=== PATIENT | female | born 1950 | race Caucasian/White ===

== ENCOUNTER 2017-10-14 15:16 | Emergency (ER) | payer MEDICARE, OTHER, SELFPAY ==
[2017-10-14 15:16] VITALS: BP 207/109; PULSE 125; RESP 18; TEMP 37.2; O2SAT 99; BMI 36.0
--- NOTE | 2017-10-14 15:27 | ED.VISSUMM ---
- ER Visit Summary Date of Service: 10/14/17 Chief Complaint: Right elbow and left knee pain status post mechanical fall History of Present Illness: The patient is a 66 F who had a mechanical fall injuring her right elbow and left knee. Immunizations unknown. She is on no anticoagulant and presently on no meds. She states she is anxious. She denies head trauma, loss of conscious, neck pain or paresthesia, anesthesia motor weakness. She denies any cardiorespiratory symptoms. She denies nausea or vomiting. She localizes pain to the right elbow and left knee. Physical Examination: Vital signs are marked for an elevated blood pressure and elevated heart rate. She does appear anxious. HEENT is grossly unremarkable no evidence of trauma. Heart is regular. Lungs are clear without any abnormal sounds. Axillary, median, radial and ulnar function intact. Radial pulse palpable. There is no pain the patient of the proximal humerus, medial lateral epicondyle or olecranon process. There is preservation of the radial head with supination pronation. There is no pain the patient of the distal radius or ulna. There is no invasion of the carpal bones and metacarpal bones or phalanges. Examination left knee reveals an abrasion. There is discoloration as well. The patella is not ballotable and there is no effusion. There is no laxity with varus or valgus stress testing. She has no joint line tenderness. No laxity with Carlos's test. Modified Kelly's test is negative. DP PT pulses are palpable. GCS is 15. Test Results: Three-view x-ray of the elbow was obtained. There is a radial head fracture at the radial neck with impaction. There appears to be a fracture of the coronoid process as well. Uncertain whether this is old or new. Emergency Department Course and Treatment: Patient declined pain medicine. Tetanus was updated and x-ray of the right elbow was obtained to evaluate for radial head fracture. Since there is no point tenderness of the left knee and no effusion full active range of motion x-ray was not obtained. Treatment Plan: Roseanna and referral to Dr. Morgan Disposition: Discharged to home with opiate analgesia and orthopedic follow-up Impression: Right radial head fracture and coronoid process fracture initial encounter secondary to fall This note was generated with Canvasation software. It may contain incorrect words, spelling, and punctuation that were not noted in review of the chart prior to signing ED Disposition - Plan for ED Patient: Disposition: Home or Assisted Living Chief Complaint: Upper Extremity Injury Instructions: ED Fx Radial Head Prescriptions: Oxycodone HCl/Acetaminophen [Percocet 5/325] 1 tab PO Q6H PRN PRN 5 Days #20 tab PRN Reason: Pain Referrals: Fareed Alicea [Primary Care Provider] - Cesar Morgan DO [STAFF PHYSICIAN] - 5-7 Days
[2017-10-14] MEDS: Diphth,Pertuss(Acell),Tet Vac 0.5 ML Vial IM (16:42)
[2017-10-14 17:33] VITALS: PULSE 112; RESP 16; O2SAT 98
== END 2017-10-14 17:35 | disposition home or self-care (01) ==
PROVIDERS: Emergency Provider Emergency Medicine; PCP Family Medicine
DX: S52.121A Displaced fracture of head of right radius, initial encounter for closed fracture (principal); S52.041A Displaced fracture of coronoid process of right ulna, initial encounter for closed fracture; S80.02XA Contusion of left knee, initial encounter; S80.212A Abrasion, left knee, initial encounter; W18.30XA Fall on same level, unspecified, initial encounter; Y93.9 Activity, unspecified; Y92.9 Unspecified place or not applicable; E66.9 Obesity, unspecified; Z68.36 Body mass index [BMI] 36.0-36.9, adult
CPT/HCPCS: 73080; 90715; 99283; A4216

== ENCOUNTER → 2019-01-08 09:44 | Outpatient (CLI) | payer MEDICARE, OTHER, SELFPAY ==
[2019-01-08 12:46] LABS: Anion Gap 9 (5-15); BUN 13 mg/dL (7-18); BUN/Creat Ratio 15.1 RATIO (10-20); Calcium,Total 9.4 mg/dL (8.5-10.1); Chloride 106 mmol/L (98-107); Creatinine, Serum 0.86 mg/dL (0.55-1.02); EST Glomerular Filtration Rate 70 mL/min (>60); Est Glom Filt Rate - Afr Amer 85 mL/min (>60); Glucose 94 mg/dL (74-106); Potassium 3.7 mmol/L (3.5-5.1); Sodium Level 141 mmol/L (136-145)
[2019-01-08 12:47] LABS: Absolute Lymphocyte Count 1.34 X10^3/uL (0.83-4.51); Absolute Neutrophil Count 6.4 X10^3/uL (2.0-7.7); Basophil# 0.05 X10^3/uL; Basophil% 0.6 % (0-1); Eosinophil# 0.03 X10^3/uL; Eosinophils% 0.4 % (0-5); Hematocrit 47.4 % (37-47); Hemoglobin 15.1 g/dL (12.0-15.0); Lymphocyte # 1.34 X10^3/ul (4.0); Lymphocyte % 16.2 % (19-41); Mean Corp Hgb Conc 31.9 g/dL (32-36); Mean Corpuscular Hgb 30.9 pg (27.0-32.0); Mean Corpuscular Volume 97.1 fL (81-99); Mean Platelet Vol. 11.8 fl (6.2-12.0); Monocyte# 0.39 X10^3/uL; Monocyte% 4.7 % (0-10); NRBC Flagged by Analyzer 0 % (0-5); Neutrophil # 6.44 X10^3/uL (2.7-7.7); Neutrophil % 77.9 % (47-70); Platelet Count 224 K/mm3 (150-450); RBC Distribution Width CV 12.6 % (11.6-14.6); RBC Distribution Width SD 45.1 fl (35.1-43.9); Red Blood Count 4.88 M/mm3 (4.2-5.4); White Blood Count 8.3 K/mm3 (4.4-11.0)
== END ==
PROVIDERS: PCP Family Medicine; Visit Provider Family Medicine
DX: R42 Dizziness and giddiness (principal)
CPT/HCPCS: 36415; 80048; 85025

== ENCOUNTER → 2019-03-14 08:30 | Outpatient (CLI) | payer MEDICARE, OTHER, SELFPAY ==
[2019-03-14 10:26] LABS: Cholesterol 191 mg/dL (200); High Density Lipoprotein 42 mg/dL; Triglycerides 121 mg/dL; Very Low Density Lipoprotein 24 mg/dL (5-40)
== END ==
PROVIDERS: PCP Family Medicine; Referring Provider Family Medicine; Visit Provider Family Medicine
DX: I10 Essential (primary) hypertension (principal)
CPT/HCPCS: 36415; 80061

== ENCOUNTER → 2019-09-03 08:34 | Outpatient (CLI) | payer MEDICARE, OTHER, SELFPAY ==
[2019-09-03 11:00] LABS: Anion Gap 3 (5-15); BUN 13 mg/dL (7-18); Chloride 109 mmol/L (98-107); Cholesterol 211 mg/dL (200); Creatinine, Serum 0.82 mg/dL (0.55-1.02); EST Glomerular Filtration Rate 74 mL/min (>60); Est Glom Filt Rate - Afr Amer 90 mL/min (>60); Glucose 99 mg/dL (74-106); High Density Lipoprotein 43 mg/dL; Potassium 3.9 mmol/L (3.5-5.1); Sodium Level 140 mmol/L (136-145); Triglycerides 115 mg/dL; Very Low Density Lipoprotein 23 mg/dL (5-40)
== END ==
PROVIDERS: PCP Family Medicine; Referring Provider Family Medicine; Visit Provider Family Medicine
DX: I10 Essential (primary) hypertension (principal)
CPT/HCPCS: 36415; 80048; 80061

== ENCOUNTER → 2020-01-29 14:20 | Outpatient (CLI) | payer MEDICARE, OTHER, SELFPAY | PROVIDERS: PCP Family Medicine; Visit Provider Family Medicine | DX: J02.9 Acute pharyngitis, unspecified (principal) | CPT/HCPCS: 87635; U0003 ==

== ENCOUNTER → 2020-02-27 08:15 | Outpatient (CLI) | payer MEDICARE, OTHER, SELFPAY ==
[2020-02-27 10:41] LABS: Anion Gap 6 (5-15); BUN 10 mg/dL (7-18); Calcium,Total 9.3 mg/dL (8.5-10.1); Chloride 106 mmol/L (98-107); Cholesterol 183 mg/dL (200); Creatinine, Serum 0.84 mg/dL (0.55-1.02); EST Glomerular Filtration Rate 72 mL/min (>60); Est Glom Filt Rate - Afr Amer 87 mL/min (>60); Glucose 92 mg/dL (74-106); High Density Lipoprotein 42 mg/dL; Potassium 3.5 mmol/L (3.5-5.1); Sodium Level 140 mmol/L (136-145); Triglycerides 126 mg/dL; Very Low Density Lipoprotein 25 mg/dL (5-40)
== END ==
PROVIDERS: PCP Family Medicine; Referring Provider Family Medicine; Visit Provider Family Medicine
DX: I10 Essential (primary) hypertension (principal)
CPT/HCPCS: 36415; 80048; 80061

== ENCOUNTER → 2021-08-31 | Outpatient (CLI) | payer MEDICARE, OTHER, SELFPAY ==
[2021-08-31 10:35] LABS: Anion Gap 6 (5-15); BUN 10 mg/dL (7-18); Calcium,Total 9.3 mg/dL (8.5-10.1); Chloride 105 mmol/L (98-107); Cholesterol 208 mg/dL (200); Creatinine, Serum 0.71 mg/dL (0.55-1.02); EST Glomerular Filtration Rate 86 mL/min (>60); Est Glom Filt Rate - Afr Amer 104 mL/min (>60); Glucose 93 mg/dL (74-106); High Density Lipoprotein 49 mg/dL; Potassium 3.8 mmol/L (3.5-5.1); Sodium Level 143 mmol/L (136-145); Triglycerides 121 mg/dL; Very Low Density Lipoprotein 24 mg/dL (5-40)
== END | disposition home or self-care (01) ==
LOC: MFPLAB 09:24
PROVIDERS: PCP Family Medicine; Visit Provider Family Medicine
DX: Z00.00 Encounter for general adult medical examination without abnormal findings (principal)
CPT/HCPCS: 36415; 80048; 80061

== ENCOUNTER → 2022-09-02 | Outpatient (CLI) | payer MEDICARE, OTHER, SELFPAY ==
--- NOTE | 2022-09-02 09:04 | RAD_ITS ---
INDICATION: PAIN EXAMINATION/TECHNIQUE: X-RAY - BILATERAL XR Hips Bilateral with Pelvis when performed; 2 Views : AP view pelvis with AP and lateral views bilateral hips COMPARISON: None. FINDINGS: PELVIC BONES: No displaced fracture or suspicious osseous lesion demonstrated. Note that overlapping bowel shadows may however obscure fine detail. Sacroiliac joints are unremarkable. No widening of the pubic symphysis. Degenerative changes along imaged lumbar spine. HIPS: Mild right hip degenerative joint space narrowing and mild acetabular osteophytic lipping. No significant joint space narrowing left hip. No hip fracture, dislocation or suspicious osseous lesion. SOFT TISSUES: Slightly prominent colonic fecal load. RAD/Hips B/L min 2 views w/ Pelvis IMPRESSION: 1. Mild right hip osteoarthrosis 2. Probable mild constipation 3. Lumbar spondylosis Electronically Signed: Stan Hong MD at 1:00 EDT ,
[2022-09-02 11:29] LABS: Anion Gap 9 (5-15); BUN 12 mg/dL (7-18); BUN/Creat Ratio 16.8 RATIO (10-20); Calcium,Total 9.6 mg/dL (8.5-10.1); Chloride 107 mmol/L (98-107); Cholesterol 156 mg/dL (200); Creatinine, Serum 0.72 mg/dL (0.55-1.02); EST Glomerular Filtration Rate 86 mL/min (>60); Est Glom Filt Rate - Afr Amer 103 mL/min (>60); Glucose 95 mg/dL (74-106); High Density Lipoprotein 48 mg/dL; Potassium 3.9 mmol/L (3.5-5.1); Sodium Level 141 mmol/L (136-145); Triglycerides 98 mg/dL; Very Low Density Lipoprotein 20 mg/dL (5-40)
== END | disposition home or self-care (01) ==
LOC: MTLAB 09:02
PROVIDERS: PCP Family Medicine; Visit Provider Family Medicine
DX: Z00.00 Encounter for general adult medical examination without abnormal findings (principal); Z79.899 Other long term (current) drug therapy
CPT/HCPCS: 36415; 73521; 80048; 80061

== ENCOUNTER 2023-01-14 08:30 | Outpatient (RCR) | payer MEDICARE, OTHER, SELFPAY ==
--- NOTE | 2022-10-19 10:00 | HP.PTEVAL ---
Patient's Visit Information Visit Information Visit Information: [facility] ASPEN APPIAH is a 71 year old F referred to Physical Therapy by Dr. Fareed Alicea MD with a diagnosis of HIP PAIN. Date of Evaluation: 10/19/22 Physical Therapist: Craig Kiser PT, Cert MDT, OCS Visit Plan Frequency: 2x /Week Duration: 4 Weeks Plan: PT INTERVENTIONS ROM/STRENGTH HIP ,DLS ,FLEXABLITY ,POSTURAL EX'S AND MODALTIES Subjective Subjective: This 71 y/o female presents to physical therapy with right hip. Patient has right hip pain for ~ 3 years which has progressively worsen . Seen Dr x-rays hip showed mild DJD hip. Pain is located right Glut radiates to thigh to knee and hamstrings and paresthesia/tingling in toes. Aggravating factors bending ,lifting ,walking ,standing unable to squat. Extended sitting. Also unable to bend over to ties shoes. Patient alleviating factors rest so some better. Coughing/sneezing +. Bowel/bladder-. Patient pain affects sleeping on right side . Patient has no abnormal night pain. Patient pain causes deficits with ADL and housework tasks. Patient goals to decrease pain. SOCIAL: VOCATION: retired Pain Right Buttocks: Pain Intensity (Out of 10): 8 Pain Intensity Range: 9 Right Lower Extremity: Pain Intensity (Out of 10): 6 Pain Intensity Range: 10 Comment: thigh Objective Objective: POSTURE: mild forward posture NEURO: c/o paresthesia/tingling toes ,reflexes L3-4,L4-5,L5-S1 1/3 PALPATION: tender LS/SI, greater trochanteric ,IT band SYMTTRIES: align PROM: hip flexion 100 degrees ,abduction 40 degrees ,ER 50 degrees ,IR 45 degrees MMT: right quads/hams 4-/5 ,( peak force ) hip flexion 9.7 ,hip abduction 10.7 ,left 4/5 LUMBAR ROM: flexion mod loss pain ,glut/hamstrings ,extension mod loss , side glides min GAIT: ambulates with antalgic gait right side Special Tests L/S Slump test left side: Negative L/S Slump test right side: Negative L/S Left Straight Leg Raise: Negative L/S Right Straight Leg Raise: Positive Lumbar Standing: Flexion - Mechanical Response: No effect Lumbar Standing: Flexion - Symptoms During Testing: Increases Lumbar Standing: Flexion - Symptoms After Testing: No worse Comments:: hip Lumbar Standing: Extension - Mechanical Response: No effect Lumbar Standing: Extension - Symptoms During Testing: Increases Lumbar Standing: Extension - Symptoms After Testing: Worse Comments:: glut Lumbar Standing: Right Side Glides - Mechanical Response: No effect Lumbar Standing: Right Side [place] - Symptoms During Testing: Increases Lumbar Standing: Right Side [place] - Symptoms After Testing: Worse Lumbar Standing: Left Side [place] - Mechanical Response: No effect Lumbar Standing: Left Side [place] - Symptoms During Testing: No effect Lumbar Standing: Left Side [place] - Symptoms After Testing: No effect Lumbar Lying: Flexion - Mechanical Response: No effect Lumbar Lying: Flexion - Symptoms During Testing: Increases Lumbar Lying: Flexion - Symptoms After Testing: No worse Lumbar Lying: Extension - Mechanical Response: No effect Lumbar Lying: Extension - Symptoms During Testing: Increases Lumbar Lying: Extension - Symptoms After Testing: Worse R Hip Scour: Positive R Hip Quadrant - Intraarticular Pathology: Positive Balance/Special Test Scores Lower Extremity Functional Score: 13 Goals Goal 1:: Patient to be I with HEP hip/back Goal Time Frame: 4-6 Weeks Goal 2:: Patient to demonstrate 50% improvement with decrease hip/back pain to improve function Goal Time Frame: 4-6 Weeks Goal 3:: Patient to improve lumbar ROM for function of recovery to put on shoes. Goal Time Frame: 4-6 Weeks Goal 4:: Patient to improve peak force of hip by 10# strength to improve gait and function Goal Time Frame: 4-6 Weeks Goal 5:: Patient to improve LFES by 5-10 points to points to improve function and ngait Goal Time Frame: 4-6 Weeks Goal 6:: Patient to normalize gait without antalgic gait Goal Time Frame: 4-6 Weeks Rehabilitation Potential Physical Therapy Diagnosis: Patient has right hip pain with possible stenosis along with hip dysfunction with weakness ,decrease ROM , weakness hip impairs gait and ADLS thus benefit from skilled PT Rehabilitation Potential: Good Anticipated Interventions Patient/Client Instruction: Educate patient on: Condition and Plan of Care For the Purpose of:: To decrease pain, To increase ROM, To improve muscle performance and motor function, To improve ability to perform ADL's, To increase tolerance to activity/condition/position, To improve ability of physical actions for home/community/work/leisure, To improve health of tissue, To decrease soft tissue restriction, To increase flexibility/ROM and To prevent re-injury Therapeutic Exercise to Include: Strength training, Endurance training, Body mechanics, Postural training, Flexibilty training and Dynamic Lumbar Stabilization Comment: BLE For the Purpose of:: To decrease pain, To increase ROM, To improve muscle performance and motor function, To increase tolerance to activity/condition/position, To improve ability of physical actions for home/community/work/leisure, To improve health of tissue, To decrease soft tissue restriction, To increase flexibility/ROM and To improve tolerance to ADL's TENS: Yes IF ES: Yes Cryotherapy (ice pack, ice massage): Yes Thermo therapy (hot pack): Yes Ultrasound (thermal/non thermal): Yes For the Purpose of:: To decrease pain, To improve nutrient delivery to tissue, To increase oxygenation perfusion, To improve health of tissue and To decrease soft tissue restriction Text: Thank you for the opportunity to evaluate your patient. For Medicare and Medicare HMO plans, please review the plan of care and approve it. It will need to be FAXED BACK to us at [phone] for Medicare purposes. For Medicare only, by signing this I certify the plan of care. Please let me know if there are questions or concerns regarding this plan of care. Physician Signature: Date:
--- NOTE | 2022-11-16 08:24 | HP.PTREVAL_ITS ---
Re-Evaluation Intro: Dr. Fareed Alicea MD, It has been my pleasure to treat MARIELA APPIAH over the last 9 visits for HIP PAIN. Please see the progress note below for an update on the physical therapy plan of care! Subjective Subjective: PT is helping Objective Objective/Function: Objective: POSTURE: mild forward posture NEURO: c/o paresthesia/tingling toes ,reflexes L3-4,L4-5,L5-S1 1/3 PALPATION: tender LS/SI, greater trochanteric ,IT band SYMTTRIES: align PROM: hip flexion 110 degrees ,abduction 40 degrees ,ER 50 degrees ,IR 45 degrees MMT: right quads/hams 4/5 ,( peak force ) hip flexion 22.4 ,hip abduction 15.7 ,left 4/5 LUMBAR ROM: flexion WFL pain ,glut/hamstrings ,extension min loss , side glides min GAIT: ambulates with antalgic gait right side mild Plan Plan Plan: PT INTERVENTIONS ROM/STRENGTH HIP ,DLS ,FLEXABLITY ,POSTURAL EX'S AND MODALTIES Balance/Gait/Functional tests Balance/Special Test Scores Lower Extremity Functional Score: 42 Goals Goals Goal 1:: Patient to be I with HEP hip/back Goal Time Frame: 4-6 Weeks Goal Progress: Progressing Goal 2:: Patient to demonstrate 50% improvement with decrease hip/back pain to improve function (new goal) Goal Time Frame: 4-6 Weeks Goal 3:: Patient to improve lumbar ROM for function of recovery to put on shoes. Goal Time Frame: 4-6 Weeks Goal Progress: Progressing Goal 4:: Patient to improve peak force of hip by 10# strength to improve gait and function (new goal) Goal Time Frame: 4-6 Weeks Goal 5:: Patient to improve LFES by 5-10 points to points to improve function and gait new goal) Goal Time Frame: 4-6 Weeks Goal 6:: Patient to normalize gait without antalgic gait Goal Time Frame: 4-6 Weeks Goal Progress: Progressing Anticipated Interventions Anticipated Interventions Patient/Client Instruction: Educate patient on: Condition and Plan of Care For the Purpose of:: To decrease pain, To increase ROM, To improve muscle performance and motor function, To improve ability to perform ADL's, To increase tolerance to activity/condition/position, To improve ability of physical actions for home/community/work/leisure, To improve health of tissue, To decrease soft tissue restriction, To increase flexibility/ROM and To prevent re-injury Therapeutic Exercise to Include: Strength training, Endurance training, Body mechanics, Postural training, Flexibilty training and Dynamic Lumbar Stabilization Comment: BLE For the Purpose of:: To decrease pain, To increase ROM, To improve muscle per formance and motor function, To increase tolerance to activity/condition/position, To improve ability of physical actions for home/community/work/leisure, To improve health of tissue, To decrease soft tissue restriction, To increase flexibility/ROM and To improve tolerance to ADL's TENS: Yes IF ES: Yes Cryotherapy (ice pack, ice massage): Yes Thermo therapy (hot pack): Yes Ultrasound (thermal/non thermal): Yes For the Purpose of:: To decrease pain, To improve nutrient delivery to tissue, To increase oxygenation perfusion, To improve health of tissue and To decrease soft tissue restriction Re-Evaluation Ending Re-evaluation ending: Please do not hesitate to contact me at [phone] by phone or if you have questions or concerns regarding this new plan of care! Sincerely, Craig Kiser, PT, Cert MDT, OCS
--- NOTE | 2022-12-17 08:28 | HP.PTREVAL ---
Re-Evaluation Intro: Dr. Fareed Alicea MD, It has been my pleasure to treat MARIELA APPIAH over the last 17 visits for HIP PAIN. Please see the progress note below for an update on the physical therapy plan of care! Subjective Subjective: Doing alot better less pain Patient able to stand and walk further distances as wall sitting Objective Objective/Function: POSTURE: mild forward posture NEURO: c/o paresthesia/tingling toes ,reflexes L3-4,L4-5,L5-S1 1/3 PALPATION: tender LS/SI, greater trochanteric ,IT band SYMTTRIES: align PROM: hip flexion 115 degrees ,abduction 45 degrees ,ER 50 degrees ,IR 45 degrees MMT: right quads/hams 4/5 ,( peak force ) hip flexion 28.4 ,hip abduction 19.1 ,left 4/5 LUMBAR ROM: flexion WFL pain ,glut/hamstrings ,extension min loss , side glides min GAIT: ambulates reciprocal pattern occasional mild decrease stance time RLE Plan Plan Plan: PT INTERVENTIONS ROM/STRENGTH HIP ,DLS ,FLEXABLITY ,POSTURAL EX'S AND MODALTIES Balance/Gait/Functional tests Balance/Special Test Scores Lower Extremity Functional Score: 45 Goals Goals Goal 1:: Patient to be I with HEP hip/back Goal Time Frame: 4-6 Weeks Goal Progress: Progressing Goal 2:: Patient to demonstrate 70% improvement with decrease hip/back pain to improve function (new goal) Goal Time Frame: 4-6 Weeks Goal Progress: Progressing Goal 3:: Patient to improve lumbar ROM for function of recovery to put on shoes. Goal Time Frame: 4-6 Weeks Goal Progress: Progressing Goal 4:: Patient to improve peak force of hip by 10# strength to improve gait and function (new goal) Goal Time Frame: 4-6 Weeks Goal Progress: Progressing Goal 5:: Patient to improve LFES by 5-10 points to points to improve function and gait new goal) Goal Time Frame: 4-6 Weeks Goal Progress: Progressing Goal 6:: Patient to normalize gait without antalgic gait Goal Time Frame: 4-6 Weeks Goal Progress: Progressing Anticipated Interventions Anticipated Interventions Patient/Client Instruction: Educate patient on: Condition and Plan of Care For the Purpose of:: To decrease pain, To increase ROM, To improve muscle performance and motor function, To improve ability to perform ADL's, To increase tolerance to activity/condition/position, To improve ability of physical actions for home/community/work/leisure, To improve health of tissue, To decrease soft tissue restriction, To increase flexibility/ROM and To prevent re-injury Therapeutic Exercise to Include: Strength training, Endurance training, Body mechanics, Postural training, Flexibilty training and Dynamic Lumbar Stabilization Comment: BLE For the Purpose of:: To decrease pain, To increase ROM, To improve muscle performance and motor function, To increase tolerance to activity/condition/position, To improve ability of physical actions for home/community/work/leisure, To improve health of tissue, To decrease soft tissue restriction, To increase flexibility/ROM and To improve tolerance to ADL's TENS: Yes IF ES: Yes Cryotherapy (ice pack, ice massage): Yes Thermo therapy (hot pack): Yes Ultrasound (thermal/non thermal): Yes For the Purpose of:: To decrease pain, To improve nutrient delivery to tissue, To increase oxygenation perfusion, To improve health of tissue and To decrease soft tissue restriction Re-Evaluation Ending Re-evaluation ending: Please do not hesitate to contact me at [phone] by phone or if you have questions or concerns regarding this new plan of care! Sincerely, Craig Kiser, PT, Cert MDT, OCS
--- NOTE | 2023-01-04 08:28 | HP.PTEVAL_ITS ---
Patient's Visit Information Visit Information Visit Information: [facility] ASPEN APPIAH is a 72 year old F referred to Physical Therapy by Dr. Fareed Alicea MD with a diagnosis of HIP PAIN. Date of Evaluation: 10/19/22 Physical Therapist: Craig Kiser PT, Cert MDT, OCS Visit Plan Frequency: 2x /Week Duration: 4 Weeks Plan: PT INTERVENTIONS ROM/STRENGTH HIP ,DLS ,FLEXABLITY ,POSTURAL EX'S AND MODALTIES Subjective Subjective: This 71 y/o female presents to physical therapy with right hip. Patient has right hip pain for ~ 3 years which has progressively worsen . Seen Dr x-rays hip showed mild DJD hip. Pain is located right Glut radiates to thigh to knee and hamstrings and paresthesia/tingling in toes. Aggravating factors bending ,lifting ,walking ,standing unable to squat. Extended sitting. Also unable to bend over to ties shoes. Patient alleviating factors rest so some better. Coughing/sneezing +. Bowel/bladder-. Patient pain affects sleeping on right side . Patient has no abnormal night pain. Patient pain causes deficits with ADL and housework tasks. Patient goals to decrease pain. SOCIAL: VOCATION: retired Pain Right Buttocks: Pain Intensity (Out of 10): 0 Pain Intensity Range: 9 Right Lower Extremity: Pain Intensity (Out of 10): 0 Pain Intensity Range: 10 Comment: thigh Objective Objective: POSTURE: mild forward posture NEURO: c/o paresthesia/tingling toes ,reflexes L3-4,L4-5,L5-S1 1/3 PALPATION: tender LS/SI, greater trochanteric ,IT band SYMTTRIES: align PROM: hip flexion 100 degrees ,abduction 40 degrees ,ER 50 degrees ,IR 45 degrees MMT: right quads/hams 4-/5 ,( peak force ) hip flexion 9.7 ,hip abduction 10.7 ,left 4/5 LUMBAR ROM: flexion mod loss pain ,glut/hamstrings ,extension mod loss , side glides min GAIT: ambulates with antalgic gait right side Special Tests L/S Slump test left side: Negative L/S Slump test right side: Negative L/S Left Straight Leg Raise: Negative L/S Right Straight Leg Raise: Positive Lumbar Standing: Flexion - Mechanical Response: No effect Lumbar Standing: Flexion - Symptoms During Testing: Increases Lumbar Standing: Flexion - Symptoms After Testing: No worse Comments:: hip Lumbar Standing: Extension - Mechanical Response: No effect Lumbar Standing: Extension - Symptoms During Testing: Increases Lumbar Standing: Extension - Symptoms After Testing: Worse Comments:: glut Lumbar Standing: Right Side Glides - Mechanical Response: No effect Lumbar Standing: Right Side [place] - Symptoms During Testing: Increases Lumbar Standing: Right Side [place] - Symptoms After Testing: Worse Lumbar Standing: Left Side [place] - Mechanical Response: No effect Lumbar Standing: Left Side [place] - Symptoms During Testing: No effect Lumbar Standing: Left Side [place] - Symptoms After Testing: No effect Lumbar Lying: Flexion - Mechanical Response: No effect Lumbar Lying: Flexion - Symptoms During Testing: Increases Lumbar Lying: Flexion - Symptoms After Testing: No worse Lumbar Lying: Extension - Mechanical Response: No effect Lumbar Lying: Extension - Symptoms During Testing: Increases Lumbar Lying: Extension - Symptoms After Testing: Worse R Hip Scour: Positive R Hip Quadrant - Intraarticular Pathology: Positive R Hip BLAKE - Intraarticular Pathology: Positive R Hip Impingement Provocation - Labrum: Positive Balance/Special Test Scores Lower Extremity Functional Score: 45 Goals Goal 1:: Patient to be I with HEP hip/back Goal Time Frame: 4-6 Weeks Goal 2:: Patient to demonstrate 70% improvement with decrease hip/back pain to improve function (new goal) Goal Time Frame: 4-6 Weeks Goal 3:: Patient to improve lumbar ROM for function of recovery to put on shoes. Goal Time Frame: 4-6 Weeks Goal 4:: Patient to improve peak force of hip by 10# strength to improve gait and function (new goal) Goal Time Frame: 4-6 Weeks Goal 5:: Patient to improve LFES by 5-10 points to points to improve function and gait new goal) Goal Time Frame: 4-6 Weeks Goal 6:: Patient to normalize gait without antalgic gait Goal Time Frame: 4-6 Weeks Rehabilitation Potential Physical Therapy Diagnosis: Patient has right hip pain with possible stenosis along with hip dysfunction with weakness ,decrease ROM , weakness hip impairs gait and ADLS thus benefit from skilled PT Rehabilitation Potential: Good Anticipated Interventions Patient/Client Instruction: Educate patient on: Condition and Plan of Care For the Purpose of:: To decrease pain, To increase ROM, To improve muscle performance and motor function, To improve ability to perform ADL's, To increase tolerance to activity/condition/position, To improve ability of physical actions for home/community/work/leisure, To improve health of tissue, To decrease soft tissue restriction, To increase flexibility/ROM and To prevent re-injury Therapeutic Exercise to Include: Strength training, Endurance training, Body mec hanics, Postural training, Flexibilty training and Dynamic Lumbar Stabilization Comment: BLE For the Purpose of:: To decrease pain, To increase ROM, To improve muscle performance and motor function, To increase tolerance to activity/condition/position, To improve ability of physical actions for home/community/work/leisure, To improve health of tissue, To decrease soft tissue restriction, To increase flexibility/ROM and To improve tolerance to ADL's TENS: Yes IF ES: Yes Cryotherapy (ice pack, ice massage): Yes Thermo therapy (hot pack): Yes Ultrasound (thermal/non thermal): Yes For the Purpose of:: To decrease pain, To improve nutrient delivery to tissue, To increase oxygenation perfusion, To improve health of tissue and To decrease soft tissue restriction Text: Thank you for the opportunity to evaluate your patient. For Medicare and Medicare HMO plans, please review the plan of care and approve it. It will need to be FAXED BACK to us at [phone] for Medicare purposes. For Medicare only, by signing this I certify the plan of care. Please let me know if there are questions or concerns regarding this plan of care. Physician Signature: Date:
--- NOTE | 2023-01-14 08:58 | HP.PTDCSUM ---
Discharge Summary D/C summary: It has been my pleasure to treat MARIELA APPIAH referred by Dr. Fareed Alicea MD, with the diagnosis of HIP PAIN for a total of 25 visit(s). Discharge Date: 01/14/23 Please see the following information for a summary of their discharge status. Subjective Subjective: Doing good ready for d/c Pain Right Buttocks: Pain Intensity (Out of 10): 0 Right Lower Extremity: Pain Intensity (Out of 10): 0 Overall Improvement % Improvement: 90 Objective Objective/Function: POSTURE: mild forward posture NEURO: denies paresthesia/tingling toes ,reflexes L3-4,L4-5,L5-S1 1/3 PALPATION: unremarkable PROM: hip flexion 115 degrees ,abduction 45 degrees ,ER 50 degrees ,IR 45 degrees MMT: right quads/hams 4/5 ,( peak force ) hip flexion 43.4 ,hip [id number] ,left 4/5 LUMBAR ROM: flexion WFL ,extension min loss , side glides min GAIT: ambulates reciprocal pattern normal navjot Goals Goal 1:: Patient to be I with HEP hip/back Goal Progress: Goal Met Goal 2:: Patient to demonstrate 70% improvement with decrease hip/back pain to improve function (new goal) Goal Progress: Goal Met Goal 3:: Patient to improve lumbar ROM for function of recovery to put on shoes. Goal Progress: Goal Met Goal 4:: Patient to improve peak force of hip by 10# strength to improve gait and function (new goal) Goal Progress: Goal Met Goal 5:: Patient to improve LFES by 5-10 points to points to improve function and gait new goal) Goal Progress: Goal Met Goal 6:: Patient to normalize gait without antalgic gait Goal Progress: Goal Met Plan Plan: D/C TO HEP AND GYM PROGRAM D/C Information Discharge Comments: HEP AND GYM PROGRAM d/c sentence: If there are questions or concerns regarding this patient's physical therapy, please feel free to call me at [phone]. Thank you for the referral of this patient. Sincerely, Craig Kiser, PT, Cert MDT, OCS Balance/Gait/Functional tests Balance/Special Test Scores Lower Extremity Functional Score: 65 Improvement % Improvement: 90
== END 2023-01-14 10:08 | disposition home or self-care (01) ==
LOC: PT 08:30
PROVIDERS: PCP Family Medicine; Referring Provider Family Medicine; Visit Provider Family Medicine
DX: M25.551 Pain in right hip (principal)
CPT/HCPCS: 97110; 97162

== ENCOUNTER 2023-09-07 09:32 | Outpatient (CLI) | payer MEDICARE, OTHER, SELFPAY ==
[2023-09-07 12:29] LABS: Vitamin B12 573 pg/mL (211-911)
[2023-09-07 12:33] LABS: Anion Gap 9 (5-15); BUN 9 mg/dL (7-18); BUN/Creat Ratio 12.9 RATIO (10-20); Calcium,Total 9.5 mg/dL (8.5-10.1); Chloride 105 mmol/L (98-107); Cholesterol 157 mg/dL (200); EST Glomerular Filtration Rate 88 mL/min (>60); Est Glom Filt Rate - Afr Amer 106 mL/min (>60); Glucose 96 mg/dL (74-106); High Density Lipoprotein 55 mg/dL; Potassium 3.6 mmol/L (3.5-5.1); Sodium Level 141 mmol/L (136-145); Triglycerides 81 mg/dL; Very Low Density Lipoprotein 16 mg/dL (5-40)
== END 2023-09-07 23:59 | disposition home or self-care (01) ==
LOC: MFPLAB 09:33
PROVIDERS: PCP Family Medicine; Visit Provider Family Medicine
DX: Z00.00 Encounter for general adult medical examination without abnormal findings (principal); E53.9 Vitamin B deficiency, unspecified; I10 Essential (primary) hypertension
CPT/HCPCS: 36415; 80048; 80061; 82607

== ENCOUNTER → 2023-09-27 | Outpatient (CLI) | payer MEDICARE, OTHER, SELFPAY ==
--- NOTE | 2023-09-27 15:21 | BD_ITS ---
STUDY: DUAL ENERGY X-RAY ABSORPTIOMETRY / DXA REASON FOR EXAM: Female, 72 years old. [id number] TECHNIQUE: Bone Mineral Density (BMD) measurements of lumbar spine and bilateral hips were obtained. COMPARISON: None. FINDINGS: Lumbar Spine (L1-L4): g/cm2 (1.038) / T-score (-0.1) / Z-score (2.1) Findings are suggestive of normal bone density with a low fracture risk. Left Femur Total: g/cm2 (0.614) / T-score (-2.7) / Z-score (-1.1) Left Femoral Neck: g/cm2 (0.491) / T-score (-3.2) / Z-score (-1.3) Right Femur Total: g/cm2 (0.568) / T-score (-3.1) / Z-score (-1.5) Right Femoral Neck: g/cm2 (0.686) / T-score (-1.5) / Z-score (0.4) BD/Dexa Bone Density Study IMPRESSION: The patient is considered osteoporotic as outlined below according to World Neri Organization (WHO) criteria with a high fracture risk. Reference Information: The T-score is the number of standard deviations above or below the standard which is normal for young adults at their peak bone mineral density. The World Health Organization (WHO) interprets the T-scores as follows: Above -1 Normal bone density Between -1 and -2.5 Osteopenia Equal to / or below -2.5 Osteoporosis As a practical clinical guideline, osteopenia may be graded as follows: Mild -1 through -1.5 Moderate -1.6 through -2.0 Severe -2.1 through -2.4 The Z-score is the number of standard deviations above or below age-matched controls. A Z-score of less than -1.5 would be considered abnormal. References: 1. NIH Osteoporosis and Related Bone Diseases www osteo.org 2. International Society for Clinical Densitometry www iscd.org 3. National Osteoporosis Foundation www nof.org Electronically Signed: Naresh Treviño MD at 9:32 EDT ,
== END | disposition home or self-care (01) ==
LOC: OPBD 15:14
PROVIDERS: PCP Family Medicine; Referring Provider Family Medicine; Visit Provider Family Medicine
DX: Z78.0 Asymptomatic menopausal state (principal)
CPT/HCPCS: 77080

== ENCOUNTER → 2023-12-08 | Outpatient (CLI) | payer MEDICARE, OTHER, SELFPAY ==
--- NOTE | 2023-12-08 06:34 | MRI_ITS ---
STUDY: MRI RIGHT HIP REASON FOR EXAM: Female, 72 years old. RT HIP PAIN TECHNIQUE: Standardized fat and water weighted pulse sequences were obtained in all 3 orthogonal planes. COMPARISON: Pelvis and bilateral hip radiographs dated 09/02/2022. FINDINGS: There is moderate to severe degenerative arthrosis of the right hip joint with severe joint space narrowing, marginal osteophyte formation, high-grade chondromalacia, and subchondral edema/cyst formation in the acetabulum. Intact femoral head, femoral neck and intratrochanteric region. There is no demonstrated fracture. There is overall degeneration of the right acetabular labrum. Normal gluteus minimus, medius and iliopsoas tendons and distal insertions. There is no trochanteric, iliopsoas or iliopectineal bursitis. Normal superior and inferior pubic rami. Normal pubic symphysis. Normal ischial tuberosity. Normal origin of the hamstring tendons. Normal visualized iliac wing, sacroiliac joint, and sacral ala. Normal visualized soft tissue structures of the pelvis. 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 Overall degeneration of the right acetabular labrum. Electronically Signed: Edwin Santos MD at 12:55 EDT ,
== END | disposition home or self-care (01) ==
LOC: MRI 06:27
PROVIDERS: PCP Family Medicine; Referring Provider Family Medicine; Visit Provider Family Medicine
DX: M25.551 Pain in right hip (principal)
CPT/HCPCS: 73721

== ENCOUNTER → 2024-01-27 | Outpatient (CLI) | payer MEDICARE, OTHER, SELFPAY ==
--- NOTE | 2024-01-27 06:14 | EKG12_ITS ---
Test Reason : PREOP Blood Pressure : */* mmHG Vent. Rate : 93 BPM Atrial Rate : 93 BPM P-R Int : 134 ms QRS Dur : 82 ms QT Int : 348 ms P-R-T Axes : 45 24 31 degrees QTcB Int : 432 ms Normal sinus rhythm Normal ECG When compared with ECG of 15-Sep-2007 08:12, No significant change was found Confirmed by Cesar Cabrales ([id number]), newspaper photo editor BAILEY EVANS ([id number]) on 01/27/2024 1:40:20 PM Referred By: Blake Thakur Confirmed By: Cesar Cabrales
[2024-01-27 06:49] LABS: Absolute Lymphocyte Count 1.71 X10^3/uL (0.83-4.51); Absolute Neutrophil Count 4.2 X10^3/uL (2.0-7.7); Basophil# 0.06 X10^3/uL; Basophil% 0.9 % (0-1); Eosinophils% 1.5 % (0-5); Hematocrit 46.1 % (37-47); Lymphocyte # 1.71 X10^3/ul (0.83-4.51); Lymphocyte % 25.8 % (19-41); Mean Corp Hgb Conc 32.5 g/dL (32-36); Mean Corpuscular Hgb 31.6 pg (27.0-32.0); Mean Corpuscular Volume 97.1 fL (81-99); Monocyte# 0.59 X10^3/uL; Monocyte% 8.9 % (0-10); NRBC Flagged by Analyzer 0 % (0-5); Neutrophil # 4.15 X10^3/uL (2.7-7.7); Neutrophil % 62.6 % (47-70); Platelet Count 226 K/mm3 (150-450); RBC Distribution Width CV 12.4 % (11.6-14.6); RBC Distribution Width SD 44.5 fl (35.1-43.9); Red Blood Count 4.75 M/mm3 (4.2-5.4); White Blood Count 6.6 K/mm3 (4.4-11.0)
[2024-01-27 07:25] LABS: Anion Gap 4 (5-15); BUN 11 mg/dL (7-18); BUN/Creat Ratio 15.4 RATIO (10-20); Calcium,Total 9.3 mg/dL (8.5-10.1); Chloride 108 mmol/L (98-107); Creatinine, Serum 0.71 mg/dL (0.55-1.02); EST Glomerular Filtration Rate 86 mL/min (>60); Est Glom Filt Rate - Afr Amer 104 mL/min (>60); Glucose 110 mg/dL (74-106); Potassium 4.1 mmol/L (3.5-5.1); Sodium Level 140 mmol/L (136-145)
== END | disposition home or self-care (01) ==
LOC: PSN 06:13
PROVIDERS: PCP Family Medicine; Referring Provider Specialist; Visit Provider Specialist
DX: Z01.818 Encounter for other preprocedural examination (principal); M16.11 Unilateral primary osteoarthritis, right hip
CPT/HCPCS: 36415; 80048; 82040; 85025; 93005

== ENCOUNTER → 2024-09-07 | Outpatient (CLI) | payer MEDICARE, OTHER, SELFPAY ==
--- OUTSIDE RECORDS SUMMARY | 2024-09-07 09:27 | XMS RPT_ITS | CCD ---
Author Organization [facility] Care Team Providers Care Testing Coordinator Name Role Phone Srinath HODGE, Fareed Lincoln Primary Care Provider MARIBETH CHEN Referring Unavailable SRINATH, FAREED LINCOLN Primary Care Unavailable OSEI MCCLELLAN Attending Unavailable Srinath, Fareed Attending Unavailable Srinath, Fareed Referring Unavailable Srinath, Fareed Primary Care Unavailable Srinath, Fareed Attending Unavailable Srinath, Fareed Referring Unavailable Srinath, Fareed Primary Care Unavailable Srinath, Fareed Attending Unavailable Srinath, Fareed Primary Care Unavailable Blake Thakur Attending Unavailable Blake Thakur Referring Unavailable Srinath, Fareed Primary Care Unavailable Medications Current Medications Medication Drug Class(es) Dates Sig (Normalized) Sig (Original) acetaminophen 325 mg / oxyCODONE hydrochloride 5 mg oral tablet (3 sources) Opioid Agonist Start: 10-14-2017 take 1 tablet by mouth every six hours as needed Oxycodone-Acetamin ophen Active 1 TABLET PO EVERY 6 HOURS NEEDED 10 07October 13, 2017 11:00pm benoxinate hydrochloride 4 mg/ml / fluorescein sodium 2.5 mg/ml ophthalmic solution (1 source) Diagnostic Dye Start: 01-04-2022 End: 01-04-2022 fluorescein-benoxi whitney 0.25-0.4 % 1 Drop (FLURESS) phenylephrine hydrochloride 25 mg/ml ophthalmic solution (1 source) alpha-1 Adrenergic Agonist Start: 01-04-2022 End: 01-04-2022 PHENYLephrine 2.5 % 1 Drop (AK-DILATE, STEFAN-SYNEPHRINE) tropicamide 10 mg/ml ophthalmic solution (1 source) Anticholinergic Start: 01-04-2022 End: 01-04-2022 tropicamide 1 % 1 Drop (MYDRIACYL) Completed/Discontinued Medications Medication Drug Class(es) Dates Sig (Normalized) Sig (Original) fluorometholone 1 mg/ml ophthalmic suspension (1 source) Corticosteroid Start: 01-04-2022 fluorometholone (FML LIQUID FILM) 0.1 % ophthalmic suspension Use 1 Drop in both eyes once daily. 5 mL 2 01/04/2022 Active Comment on above: Use 1 Drop in both e yes once daily. multivitamins(DAILY VITAMIN TAB) (1 source) Start: 09-12-2007 multivitamins(DAILY VITAMIN TAB) Take one(1) tablet daily. 0 09/12/2007 Active Comment on above: Take one(1) tablet d aily. Problems Active Problems Problem Classification Problem Date Documented Da te Episodic/Chronic Blindness and vision defects (2 sources) Regular astigmatism of right eye; Translations: [Regular astigmatism, right eye] Onset: 01-04-2022 Episodic Blindness and vision defects (2 sources) Regular astigmatism of left eye; Translations: [Regular astigmatism, left eye] Onset: 01-04-2022 Episodic Cataract (4 sources) Senile combined form cataract of right eye; Translations: [Combined forms of age-related cataract, right eye] Onset: 01-04-2022 Chronic Inflammation; infection of eye (except that caused by tuberculosis or sexually transmitteddisease) (2 sources) Bilateral punctate keratitis of eyes; Translations: [Punctate keratitis, bilateral] Onset: 01-04-2022 Chronic Other non-traumatic joint disorders (1 source) Pain in right hip; Translations: [Pain in right hip] Onset: 12-29-2023 Episodic Past or Other Problems Problem Classification Problem Date Documented Date Episodic/Chronic Biliary tract disease (1 source) Calculus of gallbladder with cholecystitis; Translations: [Calculus of gallbladder with chronic cholecystitis without obstruction] Onset: 09-12-2007 09-12-2007 Episodic Residual codes; unclassified (1 source) Asymptomatic menopausal state; Translations: [Asymptomatic menopausal state] Onset: 10-25-2023 Episodic Results Test Name Value Interpretation Reference Range Facility 12 Lead EKGon 01-27-2024 12 Lead EKG [facility] [address] [place] [address] 12 Lead EKG 01/27/24 0628 MR#: [id number] Acct: [id number] Name: MARIELA GRACIA Rep #: [id number] : 1950 73 From: Cesar Cabrales MD Attending Dr: Dr. Blake Thakur MD Status: REG CLI Ordering Dr: Blake Thakur MD Date: 01/27/24 Location: [facility] Sex: F C Admitted: Test Reason : PREOP Blood Pressure : */* mmHG Vent. Rate : 93 BPM Atrial Rate : 93 BPM P-R Int : 134 ms QRS Dur : 82 ms QT Int : 348 ms P-R-T Axes : 45 24 31 degrees QTcB Int : 432 ms Normal sinus rhythm Normal ECG When compared with ECG of 15-Sep-2007 08:12, No significant change was found Confirmed by Cesar Cabrales ([id number]), supervising editor trailer BAILEY EVANS ([id number]) on 01/27/2024 1:40:20 PM Referred By: Blake Thakur Confirmed By: Cesar Cabrales 01/27/24 1340 Date Cesar Cabrales MD CC: Dr. Fareed Alicea MD; Dr. Blake Thakur MD Signed Normal [facility] Albumin, Serumon 01-27-2024 Albumin [Mass/Vol] 4.0 g/dL Normal 3.2-5.0 [facility] Comment on above: Performed By: #### L 500.2500, L501.1800, L100.0100 #### [facility] [address] [place], [address] Basic Metabolic Profile (BMP )on 01-27-2024 BUN/CRE 15.4 RATIO Normal 10-20 [facility] Comment on above: Performed By: #### L 500.2500, L501.1800, L100.0100 #### [facility] [address] [place], [address] CA,Total 9.3 mg/dL Normal 8.5-10.1 [facility] Comment on above: Performed By: #### L 500.2500, L501.1800, L100.0100 #### [facility] [address] [place], [address] Chloride [Moles/Vol] 108 mmol/L High 98-107 [facility] Comment on above: Performed By: #### L 500.2500, L501.1800, L100.0100 #### [facility] [address] [place], [address] CO2 [Moles/Vol] 28.0 mmol/L Normal 21.0-32.0 [facility] Comment on above: Performed By: #### L 500.2500, L501.1800, L100.0100 #### [facility] [address] [place], [address] Creatinine [Mass/Vol] 0.71 mg/dL Normal 0.55-1.02 [facility] Comment on above: Result Comment: The validity of the calculated GFR GFRAA in patients over 70 years has not been determined. Clinical correlation is essential. Performed By: #### L 500.2500, L501.1800, L100.0100 #### [facility] [address] [place], [address] EST GFR - AA 104 mL/min Normal >60 [facility] Comment on above: Result Comment: Afri can Stateless GFR Calc Performed By: #### L 500.2500, L501.1800, L100.0100 #### [facility] [address] [place], [address] GAP 4 Low 5-15 [facility] Comment on above: Performed By: #### L 500.2500, L501.1800, L100.0100 #### [facility] [address] [place], [address] GFR/1.73 sq M.predicted among non-blacks MDRD (S/P/Bld) [Vol rate/Area] 86 mL/min/{1.73_m2} Normal >60 [facility] Comment on above: Result Comment: Non- GFR Calc Performed By: #### L 500.2500, L501.1800, L100.0100 #### [facility] [address] [place], [address] Glucose [Mass/Vol] 110 mg/dL High 74-106 [facility] Comment on above: Result Comment: Fast ing Glucose result from 100 to 125 mg/dL suggests IMPAIRED HOMEOSTASIS per A.D.A. criteria. Performed By: #### L 500.2500, L501.1800, L100.0100 #### [facility] [address] [place], [address] Potassium [Moles/Vol] 4.1 mmol/L Normal 3.5-5.1 [facility] Comment on above: Performed By: #### L 500.2500, L501.1800, L100.0100 #### [facility] [address] [place], [address] Sodium [Moles/Vol] 140 mmol/L Normal 136-145 [facility] Comment on above: Performed By: #### L 500.2500, L501.1800, L100.0100 #### [facility] [address] [place], [address] Urea nitrogen [Mass/Vol] 11 mg/dL Normal 7-18 [facility] Comment on above: Performed By: #### L 500.2500, L501.1800, L100.0100 #### [facility] [address] [place], [address] CBC W/Diff, Automatedon 12-0 Absolute Lymph 1.71 X10 3/uL Normal 0.83-4.51 [facility] Comment on above: Performed By: #### L 500.2500, L501.1800, L100.0100 #### [facility] [address] [place], [address] Absolute Neut 4.2 X10 3/uL Normal 2.0-7.7 [facility] Comment on above: Performed By: #### L 500.2500, L501.1800, L100.0100 #### [facility] [address] [place], [address] Basophils/100 WBC (Bld) 0.9 % Normal 0-1 [facility] Comment on above: Performed By: #### L 500.2500, L501.1800, L100.0100 #### [facility] [address] [place], [address] Eosinophils/100 WBC (Bld) 1.5 % Normal 0-5 [facility] Comment on above: Performed By: #### L 500.2500, L501.1800, L100.0100 #### [facility] [address] [place], [address] Erythrocyte distribution width (RBC) [Ratio] 12.4 % Normal 11.6-14.6 [facility] Comment on above: Performed By: #### L 500.2500, L501.1800, L100.0100 #### [facility] [address] [place], [address] Hematocrit (Bld) [Volume fraction] 46.1 % Normal 37-47 [facility] Comment on above: Performed By: #### L 500.2500, L501.1800, L100.0100 #### [facility] [address] [place], [address] Hemoglobin (Bld) [Mass/Vol] 15.0 g/dL Normal 12.0-15.0 [facility] Comment on above: Performed By: #### L 500.2500, L501.1800, L100.0100 #### [facility] [address] [place], [address] IG% 0.300 Normal 0.0-0.9 [facility] Comment on above: Result Comment: IG% - Immature Granulocytes (promyelocytes, myelocytes and metamyelocytes) > 1% indicates that a LEFT SHIFT is Present. Performed By: #### L 500.2500, L501.1800, L100.0100 #### [facility] [address] [place], [address] Lymphocytes/100 WBC (Bld) 25.8 % Normal 19-41 [facility] Comment on above: Performed By: #### L 500.2500, L501.1800, L100.0100 #### [facility] [address] [place], [address] MCH (RBC) [Entitic mass] 31.6 pg Normal 27.0-32.0 [facility] Comment on above: Performed By: #### L 500.2500, L501.1800, L100.0100 #### [facility] [address] [place], [address] MCHC (RBC) [Mass/Vol] 32.5 g/dL Normal 32-36 [facility] Comment on above: Performed By: #### L 500.2500, L501.1800, L100.0100 #### [facility] [address] [place], [address] MCV (RBC) [Entitic vol] 97.1 fL Normal 81-99 [facility] Comment on above: Performed By: #### L 500.2500, L501.1800, L100.0100 #### [facility] [address] [place], [address] Monocytes/100 WBC (Bld) 8.9 % Normal 0-10 [facility] Comment on above: Performed By: #### L 500.2500, L501.1800, L100.0100 #### [facility] [address] [place], [address] Neutrophils/100 WBC (Bld) 62.6 % Normal 47-70 [facility] Comment on above: Performed By: #### L 500.2500, L501.1800, L100.0100 #### [facility] [address] [place], [address] Nucleated RBC (Bld) [#/Vol] 0 10*3/uL Normal 0-5 [facility] Comment on above: Performed By: #### L 500.2500, L501.1800, L100.0100 #### [facility] [address] [place], [address] Platelet mean volume (Bld) [Entitic vol] 10.0 fL Normal 6.2-12.0 [facility] Comment on above: Performed By: #### L 500.2500, L501.1800, L100.0100 #### [facility] [address] [place], [address] Platelets (Bld) [#/Vol] 226 10*3/uL Normal 150-450 [facility] Comment on above: Performed By: #### L 500.2500, L501.1800, L100.0100 #### [facility] [address] [place], [address] RBC (Bld) [#/Vol] 4.75 10*6/uL Normal 4.2-5.4 [facility] Comment on above: Performed By: #### L 500.2500, L501.1800, L100.0100 #### [facility] [address] [place], [address] RDW SD 44.5 fl High 35.1-43.9 [facility] Comment on above: Performed By: #### L 500.2500, L501.1800, L100.0100 #### [facility] [address] [place], [address] WBC (Bld) [#/Vol] 6.6 10*3/uL Normal 4.4-11.0 [facility] Comment on above: Performed By: #### L 500.2500, L501.1800, L100.0100 #### [facility] [address] [place], [address] Lower Ext Joint Only (Routin e)on 12-08-2023 Lower Ext Joint Only (Routine) [facility] Imaging Services [address] [address] Lower Ext Joint Only (Routine) MR#: [id number] Acct: [id number] Name: MARIELA GRACIA Rep #: [id number] : 1950 F 72 From: Edwin Santos MD PCP: Dr. Fareed Alicea MD Status: REG CLI Study: Lower Ext Joint Only (Routine) Date of Exam: Exam# [id number] Ordering Dr: Fareed Alicea MD [id number] STUDY: MRI RIGHT HIP REASON FOR EXAM: Female, 72 years old. RT HIP PAIN TECHNIQUE: Standardized fat and water weighted pulse sequences were obtained in all 3 orthogonal planes. COMPARISON: Pelvis and bilateral hip radiographs dated 09/02/2022. FINDINGS: There is moderate to severe degenerative arthrosis of the right hip joint with severe joint space narrowing, marginal osteophyte formation, high-grade chondromalacia, and subchondral edema/cyst formation in the acetabulum. Intact femoral head, femoral neck and intratrochanteric region. There is no demonstrated fracture. There is overall degeneration of the right acetabular labrum. Normal gluteus minimus, medius and iliopsoas tendons and distal insertions. There is no trochanteric, iliopsoas or iliopectineal bursitis. Normal superior and inferior pubic rami. Normal pubic symphysis. Normal ischial tuberosity. Normal origin of the hamstring tendons. Normal visualized iliac wing, sacroiliac joint, and sacral ala. Normal visualized soft tissue structures of the pelvis. 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 Overall degeneration of the right acetabular labrum. Electronically Signed: Edwin Santos MD at 12:55 EDT , CC: Dr. Fareed Alicea MD Intensive Care Unit Registered Nurse: Signed Normal [facility] Dexa Bone Density Studyon Dexa Bone Density Study [facility] Imaging Services [address] [place] [address] Dexa Bone Density Study MR#: [id number] Acct: [id number] Name: MARIELA GRACIA Rep #: [id number] : 1950 F 72 From: Naresh albert MD PCP: Dr. Fareed Alicea MD Status: [facility] Study: Dexa Bone Density Study Date of Exam: 09/27/23 Exam# [id number] Ordering Dr: Fareed Alicea MD [id number] STUDY: DUAL ENERGY X-RAY ABSORPTIOMETRY / DXA REASON FOR EXAM: Female, 72 years old. Z780 TECHNIQUE: Bone Mineral Density (BMD) measurements of lumbar spine and bilateral hips were obtained. COMPARISON: None. FINDINGS: Lumbar Spine (L1-L4): g/cm2 (1.038) / T-score (-0.1) / Z-score (2.1) Findings are suggestive of normal bone density with a low fracture risk. Left Femur Total: g/cm2 (0.614) / T-score (-2.7) / Z-score (-1.1) Left Femoral Neck: g/cm2 (0.491) / T-score (-3.2) / Z-score (-1.3) Right Femur Total: g/cm2 (0.568) / T-score (-3.1) / Z-score (-1.5) Right Femoral Neck: g/cm2 (0.686) / T-score (-1.5) / Z-score (0.4) BD/Dexa Bone Density Study IMPRESSION: The patient is considered osteoporotic as outlined below according to World Neri Organization (WHO) criteria with a high fracture risk. Reference Information: The T-score is the number of standard deviations above or below the standard which is normal for young adults at their peak bone mineral density. The World Health Organization (WHO) interprets the T-scores as follows: Above -1 Normal bone density Between -1 and -2.5 Osteopenia Equal to / or below -2.5 Osteoporosis As a practical clinical guideline, osteopenia may be graded as follows: Mild -1 through -1.5 Moderate -1.6 through -2.0 Severe -2.1 through -2.4 The Z-score is the number of standard deviations above or below age-matched controls. A Z-score of less than -1.5 would be considered abnormal. References: 1. NIH Osteoporosis and Related Bone Diseases www osteo.org 2. International Society for Clinical Densitometry www iscd.org 3. National Osteoporosis Foundation www nof.org Electronically Signed: Naresh Treviño MD at 9:32 EDT Reading Location ID and State: [facility] / [place] , Service support , CC: Dr. Fareed Alicea MD Intensive Care Unit Registered Nurse: Signed Normal [facility] Basic Metabolic Profile (BMP )on 09-07-2023 BUN/CRE 12.9 RATIO Normal 10-20 [facility] Comment on above: Performed By: #### L 500.4100, L500.2500, L503.0105 #### [facility] [address] [place], [address] CA,Total 9.5 mg/dL Normal 8.5-10.1 [facility] Comment on above: Performed By: #### L 500.4100, L500.2500, L503.0105 #### [facility] [address] [place], [address] Chloride [Moles/Vol] 105 mmol/L Normal 98-107 [facility] Comment on above: Performed By: #### L 500.4100, L500.2500, L503.0105 #### [facility] [address] [place], [address] CO2 [Moles/Vol] 27.0 mmol/L Normal 21.0-32.0 [facility] Comment on above: Performed By: #### L 500.4100, L500.2500, L503.0105 #### [facility] [address] [place], [address] Creatinine [Mass/Vol] 0.70 mg/dL Normal 0.55-1.02 [facility] Comment on above: Result Comment: The validity of the calculated GFR GFRAA in patients over 70 years has not been determined. Clinical correlation is essential. Performed By: #### L 500.4100, L500.2500, L503.0105 #### [facility] [address] [place], [address] EST GFR - AA 106 mL/min Normal >60 [facility] Comment on above: Result Comment: Afri can Stateless GFR Calc Performed By: #### L 500.4100, L500.2500, L503.0105 #### [facility] [address] [place], [address] GAP 9 Normal 5-15 [facility] Comment on above: Performed By: #### L 500.4100, L500.2500, L503.0105 #### [facility] [address] [place], [address] GFR/1.73 sq M.predicted among non-blacks MDRD (S/P/Bld) [Vol rate/Area] 88 mL/min/{1.73_m2} Normal >60 [facility] Comment on above: Result Comment: Non- GFR Calc Performed By: #### L 500.4100, L500.2500, L503.0105 #### [facility] [address] [place], [address] Glucose [Mass/Vol] 96 mg/dL Normal 74-106 [facility] Comment on above: Performed By: #### L 500.4100, L500.2500, L503.0105 #### [facility] [address] [place], [address] Potassium [Moles/Vol] 3.6 mmol/L Normal 3.5-5.1 [facility] Comment on above: Performed By: #### L 500.4100, L500.2500, L503.0105 #### [facility] [address] [place], [address] Sodium [Moles/Vol] 141 mmol/L Normal 136-145 [facility] Comment on above: Performed By: #### L 500.4100, L500.2500, L503.0105 #### [facility] [address], [address] Urea nitrogen [Mass/Vol] 9 mg/dL Normal 7-18 [facility] Comment on above: Performed By: #### L 500.4100, L500.2500, L503.0105 #### [facility] [address] [place], [address] Lipid Profileon 09-07-2023 Cholesterol [Mass/Vol] 157 mg/dL Normal 200 [facility] Comment on above: Result Comment: <200 mg/dL Desirable 200-240 mg/dL Borderline >240 mg/dL High Risk Performed By: #### L 500.4100, L500.2500, L503.0105 #### [facility] [address] [place], [address] Cholesterol in HDL [Mass/Vol] 55 mg/dL Normal [facility] Comment on above: Result Comment: The drugs N-Acetylcysteine and Metamizole may falsely depress this assay. Reference Range HDL <40 mg/dL Low HDL Cholesterol HDL >or= 60 mg/dL High HDL Cholesterol Performed By: #### L 500.4100, L500.2500, L503.0105 #### [facility] [address] [place], [address] Cholesterol in LDL [Mass/Vol] 86 mg/dL Normal 0-130 [facility] Comment on above: Performed By: #### L 500.4100, L500.2500, L503.0105 #### [facility] [address] [place], [address] Cholesterol in VLDL [Mass/Vol] 16 mg/dL Normal 5-40 [facility] Comment on above: Performed By: #### L 500.4100, L500.2500, L503.0105 #### [facility] [address] [place], [address] Triglyceride [Mass/Vol] 81 mg/dL Normal [facility] Comment on above: Result Comment: The drugs N-Acetylcysteine and Metamizole may falsely depress this assay. Serum Triglycerides Reference Interval Normal <150 mg/dL Borderline high 150 - 199 mg/dL High 200 - 499 mg/dL Very High > or = 500 mg/dL Performed By: #### L 500.4100, L500.2500, L503.0105 #### [facility] [address] [place], [address] Vitamin B12on 09-07-2023 Cobalamin (Vitamin B12) [Mass/Vol] 573 pg/mL Normal 211-911 [facility] Comment on above: Performed By: #### L 500.4100, L500.2500, L503.0105 #### [facility] [address] [place], [address] Basophil percentageOrdered B y: Fareed Alicea on 09-02-2022 Chloride [Moles/Vol] 107 mmol/L 98-107 [facility] Cholesterol [Mass/Vol] 156 mg/dL <200 [facility] Comment on above: <200 mg/dL Desirable 200-240 mg/dL Borderline >240 mg/dL High Risk Glucose [Mass/Vol] 95 mg/dL 74-106 [facility] Potassium [Moles/Vol] 3.9 mmol/L 3.5-5.1 [facility] Sodium [Moles/Vol] 141 mmol/L 136-145 [facility] Triglyceride [Mass/Vol] 98 mg/dL <199 [facility] Comment on above: The drugs N-Acetylcy steine and Metamizole may falsely depress this assay.Serum Triglycerides Reference Interval Normal <150 mg/dL Borderline high 150 - 199 mg/dL High 200 - 499 mg/dL Very High > or = 500 mg/dL Laboratory - Chemistry and C hemistry - challengeOrdered By: Fareed Alicea on 09-02-2022 CO2 [Moles/Vol] 25.0 mmol/L 21.0-32.0 [facility] Urea nitrogen/Creatinine [Mass ratio] 16.8 mg/mg 10-20 [facility] No Panel InformationOrdered By: Fareed Alicea on 09-02-2022 Estimated GFR (MDRD) Amer 103 mL/min >60 [facility] Comment on above: GFR Calc Estimated GFR (MDRD) Non-Af Amer 86 mL/min >60 [facility] Comment on above: Non- GFR Calc Serum or plasma calcium shade urement (mass/volume)Ordered By: Fareed Alicea on 09-02-2022 Calcium [Mass/Vol] 9.6 mg/dL 8.5-10.1 [facility] Serum or plasma cholesterol in HDL measurement (mass/volume)Ordered By: Fareed Alicea on 09-02-2022 Cholesterol in HDL [Mass/Vol] 48 mg/dL >40 [facility] Comment on above: The drugs N-Acetylcy steine and Metamizole may falsely depress this assay. Reference Range HDL <40 mg/dL Low HDL Cholesterol HDL >or= 60 mg/dL High HDL Cholesterol Serum or plasma cholesterol in VLDL measurement (mass/volume)Ordered By: Fareed Alicea on 09-02-2022 Cholesterol in VLDL [Mass/Vol] 20 mg/dL 5-40 [facility] Serum or plasma creatinine m easurement (mass/volume)Ordered By: Fareed Alicea on 09-02-2022 Creatinine [Mass/Vol] 0.72 mg/dL 0.55-1.02 [facility] Comment on above: The validity of the calculated GFR & GFRAA in patients over 70 years has not been determined. Clinical correlation is essential. Serum or plasma low density lipoprotein (LDL) cholesterol measurement (mass/volume)Ordered By: Fareed Alicea on 09-02-2022 Cholesterol in LDL [Mass/Vol] 88 mg/dL 0-130 [facility] Serum or plasma urea nitroge n measurement (mass/volume)Ordered By: Fareed Alicea on 09-02-2022 Urea nitrogen [Mass/Vol] 12 mg/dL 7-18 [facility] Thin prep Papanicolaou smear with manual screeningOrdered By: Fareed Alicea on 09-02-2022 Thin prep Papanicolaou smear with manual screening 9 5-15 [facility] Basophil percentageon 2021 Chloride [Moles/Vol] 105 mmol/L 98-107 [facility] Work Phone: Cholesterol [Mass/Vol] 208 mg/dL <200 [facility] Work Phone: Comment on above: <200 mg/dL Desirable 200-240 mg/dL Borderline >240 mg/dL High Risk Glucose [Mass/Vol] 93 mg/dL 74-106 [facility] Work Phone: Potassium [Moles/Vol] 3.8 mmol/L 3.5-5.1 [facility] Work Phone: Sodium [Moles/Vol] 143 mmol/L 136-145 [facility] Work Phone: Triglyceride [Mass/Vol] 121 mg/dL <199 [facility] Work Phone: Comment on above: The drugs N-Acetylcy steine and Metamizole may falsely depress this assay.Serum Triglycerides Reference Interval Normal <150 mg/dL Borderline high 150 - 199 mg/dL High 200 - 499 mg/dL Very High > or = 500 mg/dL Laboratory - Chemistry and C hemistry - challengeon 08-31-2021 CO2 [Moles/Vol] 32.0 mmol/L 21.0-32.0 [facility] Work Phone: Urea nitrogen/Creatinine [Mass ratio] 14.0 mg/mg 10-20 [facility] Work Phone: No Panel Informationon 08-31 Estimated GFR (MDRD) Amer 104 mL/min >60 [facility] Work Phone: Comment on above: GFR Calc Estimated GFR (MDRD) Non-Af Amer 86 mL/min >60 [facility] Work Phone: Comment on above: Non- GFR Calc Serum or plasma calcium shade urement (mass/volume)on 08-31-2021 Calcium [Mass/Vol] 9.3 mg/dL 8.5-10.1 [facility] Work Phone: Serum or plasma cholesterol in HDL measurement (mass/volume)on 08-31-2021 Cholesterol in HDL [Mass/Vol] 49 mg/dL >40 [facility] Work Phone: Comment on above: The drugs N-Acetylcy steine and Metamizole may falsely depress this assay. Reference Range HDL <40 mg/dL Low HDL Cholesterol HDL >or= 60 mg/dL High HDL Cholesterol Serum or plasma cholesterol in VLDL measurement (mass/volume)on 08-31-2021 Cholesterol in VLDL [Mass/Vol] 24 mg/dL 5-40 [facility] Work Phone: Serum or plasma creatinine m easurement (mass/volume)on 08-31-2021 Creatinine [Mass/Vol] 0.71 mg/dL 0.55-1.02 [facility] Work Phone: Comment on above: The validity of the calculated GFR & GFRAA in patients over 70 years has not been determined. Clinical correlation is essential. Serum or plasma low density lipoprotein (LDL) cholesterol measurement (mass/volume)on 08-31-2021 Cholesterol in LDL [Mass/Vol] 135 mg/dL 0-130 [facility] Work Phone: Serum or plasma urea nitroge n measurement (mass/volume)on 08-31-2021 Urea nitrogen [Mass/Vol] 10 mg/dL 7-18 [facility] Work Phone: Thin prep Papanicolaou smear with manual screeningon 08-31-2021 Thin prep Papanicolaou smear with manual screening 6 5-15 [facility] Work Phone: No Panel Information [facility] Vital Signs Date Time Vital Sign Value Performing Clinician Faci lity 01-04-2022 09:18-0500 Diastolic blood pressure 90 mm[Hg] Osei Mcclellan MD Work Phone: [facility] 01-04-2022 09:18-0500 Heart rate 102 /min Osei Mcclellan MD Work Phone: [facility] 01-04-2022 09:18-0500 Systolic blood pressure 174 mm[Hg] Osei Mcclellan MD Work Phone: [facility] Encounters Encounter Date Encounter Type Care Provider Facility Start: 02-28-2024 Encounter for other preprocedural examination Blake Thakur [facility] Start: 01-27-2024 End: 01-27-2024 ambulatory Blake Thakur Facility:[facility] Start: 12-08-2023 End: 12-08-2023 ambulatory Fareed Alicea Facility:[facility] Start: 10-03-2023 Encounter for genera l adult medical examination without abnormal findings Fareed Alicea [facility] Start: 09-27-2023 End: 09-27-2023 ambulatory Fareed Alicea Facility:[facility] Start: 09-07-2023 End: 09-07-2023 ambulatory Fareed Alicea Facility:[facility] Start: 01-14-2023 End: 01-14-2023 ambulatory [facility] Work Phone: Start: 01-14-2023 End: 01-14-2023 Discharged Recurring [facility] Work Phone: Start: 09-02-2022 End: 09-02-2022 ambulatory [facility] Work Phone: Start: 09-02-2022 End: 09-02-2022 Patient encounter procedure [facility] Work Phone: Start: 01-04-2022 End: 01-04-2022 ambulatory [facility] Facility:[facility] Start: 01-04-2022 End: 01-04-2022 Patient encounter procedure Osei Mcclellan MD Work Phone: Ophthalmology Comment on above: Combined forms of ag e-related cataract of right eye (Primary Dx); Regular astigmatism of right eye; Combined forms of age-related cataract of left eye; Regular astigmatism of left eye; Punctate keratitis of both eyes Start: 08-31-2021 End: 08-31-2021 Patient encounter procedure [facility] Family Procedures Date Procedure Procedure Detail Performing Clinician Start: 09-02-2022 Plain x-ray of pelvi s and lower extremity Start: 01-04-2022 Computerized corneal topography uni/bi Osei Mcclellan MD Work Phone: Start: 01-04-2022 IOL BIOMETRY W/ IOL CALC OU (BOTH EYES) Osei Mcclellan MD Work Phone: Start: 01-04-2022 End: 01-04-2022 Computerized ophthalmic imaging retina Osei Mcclellan MD Work Phone: Plan of Treatment Date Care Activity Detail Author Start: 02-21-2021 ADVANCE DIRECTIVE DISCUSSION ADVANCE DIRECTIVE DISCUSSION [facility] Start: 02-21-2021 DEPRESSION ASSESSMENT DEPRESSION ASS ESSMENT [facility] Start: 12-20-2016 BONE DENSITY BONE DENSITY [facility] Start: 12-20-2016 PNEUMOCOCCAL: 65+ (1 - PCV) PNEUMOCOCCAL: 65+ (1 - PCV) [facility] Start: 12-20-2001 SHINGRIX VACCINE (1 of 2) SHINGRIX V ACCINE (1 of 2) [facility] Start: 12-20-1996 COLOGUARD (FIT-DNA) COLOGUARD (FIT-D NA) [facility] Start: 12-20-1996 Colonoscopy COLONOSCOPY [facility] Start: 12-20-1996 COLORECTAL CANCER SCREENING COLORECTAL CANCER SCREENING [facility] Start: 12-20-[address] COLONOGRAPHY [facility] Start: 12-20-1996 DIABETES SCREEN DIABETES SCREEN [facility] Start: 12-20-1996 FECAL OCCULT BLOOD FECAL OCCULT BLOO D [facility] Start: 12-20-1996 LIPID SCREEN LIPID SCREEN [facility] Start: 12-20-1996 SIGMOIDOSCOPY SIGMOIDOSCOPY [facility] Start: 1991 Mammography MAMMOGRAM [facility] Start: 12-20-1970 Urine microalbumin profile DTAP,TDAP ,TD (1 - Tdap) [facility] Start: 12-20-1969 HEPATITIS C SCREENING HEPATITIS C SC REENING [facility] Immunizations Immunization Date Immunization Notes Care Provider Fa cility 10-14-2017 tetanus toxoid, redu holly diphtheria toxoid, and acellular pertussis vaccine, adsorbed [facility] Payers Date Payer Category Payer Self-pay [id number] 2017 Private Health Insurance [facility] [id number] 2017 Private Health Insurance [employer] A ETNA MEDICARE SUPPLEMENT [id number] 2017-Present [phone] [address] [address] [place] [address] Indemnity [id number] 2016 Medicare [id number] 2016 Medicare MEDICARE MEDICAR E A AND B [id number] 2016-Present [phone] [address] [address] [place] [address] Medicare [id number] Private Health Insurance [id number] Unknown [id number] Unknown [id number] Unknown [id number] Unknown [id number] Social History Date Type Detail Facility Start: 10-14-2017 End: 10-14-2017 Tobacco smoking status MSIS Unknown if ever smoked [facility] Start: 1950 Sex Assigned At Female [facility] Start: 01-04-2022 [facility] Start: 01-04-2022 Tobacco use and exposure Smokeless tobacco non-user [facility] Start: 01-04-2022 Alcohol intake Current non-dr street superintendent of alcohol (finding) [facility] Start: 1950 Sex Assigned At Not on file [facility] Start: 12-25-2021 End: 01-04-2022 Exposure to SARS-CoV-2 (event) Not sure [facility] Discharge summary 01-14-2023 Note Date & Type Note Facility 01-14-2023 Discharge summary Note Date/Time January 14, 2023 8:58am [facility] Physical Therapy [address] [place] [address] / REHABILITATION SERVICES DISCHARGE SUMMARY MR#: [id number] Acct: [id number] Name: MARIELA GRACIA Rep #: [id number] : 1950 72 From: Cert. JESSICA Resendez, OCS Referring Dr.: Dr. Fareed Alicea MD Status: REG RCR Insurance: MEDICARE PART A B AET[employer] SR SUPPLEMENT INS Discharge Summary D/C summary: It has been my pleasure to treat MARIELA GRACIA referred by Dr. Fareed Alicea MD, with the diagnosis of HIP PAIN for a total of 25 visit(s). Discharge Date: 01/14/23 Please see the following information for a summary of their discharge status. Subjective Subjective: Doing good ready for d/c Pain Right Buttocks: Pain Intensity (Out of 10): 0 Right Lower Extremity: Pain Intensity (Out of 10): 0 Overall Improvement % Improvement: 90 Objective Objective/Function: POSTURE: mild forward posture NEURO: denies paresthesia/tingling toes ,reflexes L3-4,L4-5,L5-S1 1/3 PALPATION: unremarkable PROM: hip flexion 115 degrees ,abduction 45 degrees ,ER 50 degrees ,IR 45 degrees MMT: right quads/hams 4/5 ,( peak force ) hip flexion 43.4 ,hip tyopgbneh15.1 ,left 4/5 LUMBAR ROM: flexion WFL ,extension min loss , side glides min GAIT: ambulates reciprocal pattern normal navjot Goals Goal 1:: Patient to be I with HEP hip/back Goal Progress: Goal Met Goal 2:: Patient to demonstrate 70% improvement with decrease hip/back pain to improve function (new goal) Goal Progress: Goal Met Goal 3:: Patient to improve lumbar ROM for function of recovery to put on shoes. Goal Progress: Goal Met Goal 4:: Patient to improve peak force of hip by 10# strength to improve gait and function (new goal) Goal Progress: Goal Met Goal 5:: Patient to improve LFES by 5-10 points to points to improve function and gait new goal) Goal Progress: Goal Met Goal 6:: Patient to normalize gait without antalgic gait Goal Progress: Goal Met Plan Plan: D/C TO HEP AND GYM PROGRAM D/C Information Discharge Comments: HEP AND GYM PROGRAM d/c sentence: If there are questions or concerns regarding this patient's physical therapy, please feel free to call me at [phone]. Thank you for the referral of thispatient. Sincerely, Craig Kiser PT, Cert MDT, OCS Balance/Gait/Functional tests Balance/Special Test Scores Lower Extremity Functional Score: 65 Improvement % Improvement: 90 <Electronically signed by Richard Ragsdale PT. JESSICA, OCS> 01/14/23 0858 CC: Dr. Fareed Alicea MD ~ JLA Signed [facility] Work Phone: Progress note 01-04-2022 Note Date & Type Note Facility 01-04-2022 Note HNO ID: [id number] Author: Osei Mcclellan MD Service: ? Author Type: Physician Type: Progress Notes Filed: 01/04/2022 10:36 AM Note Text: ASSESSMENT/PLAN: 1. Combined forms of age-related cataract of right eye - ICD9: 366.19, ICD10: H25.811 (primary diagnosis) 2. Regular astigmatism of right eye - ICD9: 367.21, ICD10: H52.221 3. Combined forms of age-related cataract of left eye - ICD9: 366.19, ICD10: H25.812 4. Regular astigmatism of left eye - ICD9: 367.21, ICD10: H52.222 - IOL BIOMETRY W/ IOL CALC OU (BOTH EYES) - OCT MACULA CIRRUS OU (BOTH EYES) - CORNEAL TOPOGRAPHY ATLAS OU (BOTH EYES) Discontinue contact lens wear Both Eyes. Plan Cataract Surgery with Toric Intraocular Lens Implant Both Eyes after corneas are stable. Patient to see Dr. Alicea for physical, EKG, and BMP before proceeding with surgery. Blood pressure 174/90, pulse 102. 5. Punctate keratitis of both eyes - ICD9: 370.21, ICD10: H16.143 Current Ophthalmic Meds fluorometholone (FML LIQUID FILM) 0.1 % ophthalmic suspension Use 1 Drop in both eyes once daily. Start Systane Complete solution instill 1 drop 3 times daily Both Eyes. Genteal Gel at bedtime Both Eyes. Osei Mcclellan MD I have confirmed and edited as necessary the relevant ophthalmic history, review of systems, surgical history, and ophthalmological examination findings as obtained by the ophthalmic technical staff. I have seen and examined Mariela Gracia. I have discussed the examination findings, diagnosis, and treatment options with Mariela Gracia and/or her family. I have also reviewed and agree with the assessment and plan as stated above and agree with all its relevant components. I gave the patient the opportunity to ask questions about the findings, diagnosis, and treatment options. [facility] Note 01-04-2022 Addendum Note - Osei Mcclellan MD - 01/04/2022 10:39 AM EST Note Date & Type Note Facility 01-04-2022 Miscellaneous Notes Addended by: OSEI MCCLELLAN on: 01/04/2022 10:39 AM Modules accepted: Orders, SmartSet documented in this encounter [facility] Instructions 01-04-2022 Patient Instructions Note Date & Type Note Facility 01-04-2022 Instructions Osei Mcclellan MD - 01/04/2022 10:35 AM EST Current Ophthalmic Meds fluorometholone (FML LIQUID FILM) 0.1 % ophthalmic suspension Use 1 Drop in both eyes once daily. Start Systane Complete solution instill 1 drop 3 times daily Both Eyes. Genteal Gel at bedtime Both Eyes. If you have any questions please contact our office at [phone]. After office hours or on the weekend, please call Dr. Mcclellan on his cell phone at [phone]. documented in this encounter [facility] History of Present illness Narrative 01-04-2022 Osei Mcclellan MD - 01/04/2022 10:31 AM EST Note Date & Type Note Facility 01-04-2022 History of Presen t illness Narrative ASSESSMENT/PLAN: 1. Combined forms of age-related cataract of right eye - ICD9: 366.19, ICD10: H25.811 (primary diagnosis) 2. Regular astigmatism of right eye - ICD9: 367.21, ICD10: H52.221 3. Combined forms of age-related cataract of left eye - ICD9: 366.19, ICD10: H25.812 4. Regular astigmatism of left eye - ICD9: 367.21, ICD10: H52.222 - IOL BIOMETRY W/ IOL CALC OU (BOTH EYES) - OCT MACULA CIRRUS OU (BOTH EYES) - CORNEAL TOPOGRAPHY ATLAS OU (BOTH EYES) Discontinue contact lens wear Both Eyes. Plan Cataract Surgery with Toric Intraocular Lens Implant Both Eyes after corneas are stable. Patient to see Dr. Alicea for physical, EKG, and BMP before proceeding with surgery. Blood pressure 174/90, pulse 102. 5. Punctate keratitis of both eyes - ICD9: 370.21, ICD10: H16.143 Current Ophthalmic Meds fluorometholone (FML LIQUID FILM) 0.1 % ophthalmic suspension Use 1 Drop in both eyes once daily. Start Systane Complete solution instill 1 drop 3 times daily Both Eyes. Genteal Gel at bedtime Both Eyes. Osei Mcclellan MD I have confirmed and edited as necessary the relevant ophthalmic history, review of systems, surgical history, and ophthalmological examination findings as obtained by the ophthalmic technical staff. I have seen and examined Mariela Gracia. I have discussed the examination findings, diagnosis, and treatment options with Mariela Gracia and/or her family. I have also reviewed and agree with the assessment and plan as stated above and agree with all its relevant components. I gave the patient the opportunity to ask questions about the findings, diagnosis, and treatment options. documented in this encounter [facility] Evaluation note Note Date & Type Note Facility [facility] Evaluation note Note Date & Type Note Facility Evaluation note Diagnosis Combined forms of age-related cataract of right eye- Primary Other and combined forms of senile cataract Regular astigmatism of right eye Regular astigmatism Combined forms of age-related cataract of left eye Other and combined forms of senile cataract Regular astigmatism of left eye Regular astigmatism Punctate keratitis of both eyes Punctate keratitis documented in this encounter [facility] Advance Directives No Advanced Directives Records Found Advance Directive Response Recorded Date/ Time Living Will No October 14 3:57pm Power of Food Service Substitute No October 14 018 3:57pm Advance Directive Response Recorded Date/ Time Living Will No October 14 8 2:57pm Power of Food Service Substitute No October 14 018 2:57pm Medications Administered Section Active Administered Medications - up to 3 most recent administrations Medication Order MAR Action Action Date Dose Rate Site fluorescein-benoxinate 0.25-0.4 % 1 Drop (FLURESS) 1 Drop, BOTH EYES, DIRECTED, Starting on Tue01/04/22 at 0930, Until Tue01/04/22 at 2129, Administer for applanation tonometry. In the event of a Fluress shortage, administer Angelika-Fluor 1 drop into both eyes as directed for applanation tonometry Given 01/04/2022 9:30 AM EST 1 Drop PHENYLephrine 2.5 % 1 Drop (AK-DILATE, STEFAN-SYNEPHRINE) 1 Drop, BOTH EYES, DIRECTED, Starting on Tue01/04/22 at 0930, Until Tue01/04/22 at 2129, Administer for dilation PROTECT FROM LIGHT Given 01/04/2022 9:30 AM EST 1 Drop tropicamide 1 % 1 Drop (MYDRIACYL) 1 Drop, BOTH EYES, DIRECTED, Starting on Tue01/04/22 at 0930, Until Tue01/04/22 at 2129, Administer for dilation Given 01/04/2022 9:30 AM EST 1 Drop Summary Purpose Family History No Family History Records FoundNo Family History Records Found Chief Complaint and Reason for Visit Chief Complaint WELLNESS Chief Complaint R HIP PAIN RX HERE Additional Source Comments Goals (unrecognized section and content) Goals may be documented in a n alternate sectionGoals may be documented in an alternate sectionGoals may be documented in an alternate section Source Comments (unrecognize d section and content) In the event this informatio n is protected by the Federal Confidentiality of Alcohol and Drug Abuse Patient Records regulations: The Federal rules restrict any use of the information to criminally investigate or prosecute any alcohol or drug abuse patient.[facility] Reason for Visit (unrecogniz ed section and content) Reason Comments Blurred Vision Both Eyes Right eye worse than left eye for 2 years Difficulty Reading Both Eyes Right eye w orse than left eye for 2 years Glare Both eyes has gotten worse over past 2 years Care Teams (unrecognized sec tion and content) Testing Coordinator Relationship Specialty Start Date End Date Fareed Alicea MD [address] [facility] [address] [place] [address] PCP - General Family Medicine 01/04/22 Team Status: Active Member Role Status Dates Fareed PETTIT Primary Care Provider Active Team Status: Inactive Member Role Status Dates Fareed PETTIT Primary Care Provider Active Dr. Fareed Alicea MD Attending Provider Active Team Status: Active Member Role Status Dates Dr. Fareed Alicea MD Primary Care Provider Active Team Status: Inactive Member Role Status Dates Dr. Fareed Alicea MD Primary Care Provi maryam, Attending Provider, Referring Provider Active INFORMATION SOURCE (unrecogn ized section and content) DATE CREATED AUTHOR 01/05/2022 [facility] DATE CREATED AUTHOR AUTHOR'S ORGANIZ ATION 03/05/2024 [facility] FOR RECORDS PERTAINING TO PATIENTS WHO ARE OR HAVE BEEN ENROLLED IN A CHEMICAL DEPENDENCY/SUBSTANCEABUSE PROGRAM, SOME INFORMATION MAY BE OMITTED. This clinical summary was aggregated from multiple sources. Caution should be exercised in using it in the provision of clinical care. This summary normalizes information from multiple sources, and as a consequence, information in this document may materially change the coding, format and clinical context of patient data. In addition, data may be omitted in some cases. CLINICAL DECISIONS SHOULD BE BASED ON THE PRIMARY CLINICAL RECORDS. [employer] provides no warranty or guarantee of the accuracy or completeness of information in this document.
[2024-09-07 12:06] LABS: Anion Gap 13 (5-15); BUN 10 mg/dL (4-19); BUN/Creat Ratio 13.7 RATIO (10-20); Calcium,Total 9.7 mg/dL (7.6-11.0); Carbon Dioxide 23.7 mmol/L (21.0-32.0); Chloride 106 mmol/L (98-108); Cholesterol 172 mg/dL (<=200); Glucose 89 mg/dL (70-99); Low Density Lipoprotein Calc. 104 mg/dL; Potassium 3.6 mmol/L (3.3-5.1); Triglycerides 69 mg/dL; Very Low Density Lipoprotein 14 mg/dL (5-40); cholesterol:hdl ratio screen 3.16
== END | disposition home or self-care (01) ==
LOC: MFPLAB 08:34
PROVIDERS: PCP Family Medicine; Referring Provider Family Medicine; Visit Provider Family Medicine
DX: Z00.00 Encounter for general adult medical examination without abnormal findings (principal); I10 Essential (primary) hypertension
CPT/HCPCS: 36415; 80048; 80061